=== PATIENT | female | born 1995 | race Caucasian/White ===

== ENCOUNTER → 2024-09-22 | Outpatient (CLI) | payer OTHER, SELFPAY ==
--- NOTE | 2024-09-22 08:18 | US_ITS ---
EXAM: US Abdomen Limited, Right Upper Quadrant CLINICAL INDICATION: INTRA ABD AND PELVIC SWELLING, MASS AND LUMP TECHNIQUE: Real-time ultrasound of the targeted right and left lower abdominal quadrant with image documentation. COMPARISON: No relevant prior studies available. FINDINGS: Targeted ultrasound of the right and left lower abdomen measures up to 0.3 cm. These are anechoic. No internal vascularity noted. US/Abdomen Limited IMPRESSION: Suggestion of cysts over the interrogated area. Reading [facility]
== END | disposition home or self-care (01) ==
PROVIDERS: PCP Nurse Practitioner Family; Referring Provider Nurse Practitioner Family; Visit Provider Nurse Practitioner Family
DX: R19.00 Intra-abdominal and pelvic swelling, mass and lump, unspecified site (principal)
CPT/HCPCS: 76705